=== PATIENT | female | born 1955 | race Caucasian/White ===

== ENCOUNTER 2024-11-18 18:48 | Emergency (ER) | payer BC, MEDICARE ==
[2024-11-18] MEDS: Diphtheria,Pertussis(Acell),Tetanus Vaccine 0.5 ML Syringe IM ONE (20:32)
[2024-11-18] MEDS: Lidocaine 1% with EPINEPHrine 1:100,000 50 ML MDV SUBCUT STA (20:33)
== END 2024-11-18 20:47 | disposition home or self-care (01) ==
LOC: JP.ED 18:48
DX: S01.01XA Laceration without foreign body of scalp, initial encounter (principal); Z23 Encounter for immunization; V00.831A Fall from motorized mobility scooter, initial encounter
CPT/HCPCS: 12002; 70450; 90471; 90715; 99283-25